=== PATIENT | female | born 1995 | race Caucasian/White ===

== ENCOUNTER 2020-01-08 14:09 | Emergency (ER) | payer MEDICAID, OTHER ==
[2020-01-08 14:24] VITALS: BP 124/81
--- NOTE | 2020-01-08 15:00 | XRAY Report ---
PROCEDURE: Forearm RT INDICATIONS: injury TECHNIQUE: 2 views of the forearm were acquired. COMPARISON: None. FINDINGS: Bones: No fractures or dislocations. No periosteal reaction. No suspicious bony lesions. Soft tissues: No suspicious soft tissue calcifications or masses. No radiopaque foreign body. IMPRESSION: No fracture or dislocation demonstrated. If symptoms persist consider follow-up radiographs in 10-14 days. No radiopaque foreign body. Reviewed by: Geo Galarza MD on 01/08/2020 2:59 PM PDT Approved by: Geo Galarza MD on 01/08/2020 2:59 PM PDT Station ID: [id number]
--- NOTE | 2020-01-08 16:05 | ED Physician Documentation ---
History of Present Illness - Stated complaint Stated Complaint: RT ARM INJURY - Chief complaint Chief Complaint: Trauma Ext - History obtained from History obtained from: Patient - Additonal information Additional information: Patient comes emergency department complaining of pain in her right forearm after her dog jerked her arm and caused her to hit her mid right forearm on the wooden back of the couch. Patient states that has been sore with movement since and that ibuprofen and Tylenol do not seem to be helping. 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 Patient denies any other complaints at this time. She was not hurt in any other way. Review of Systems Ten Systems: 10 systems reviewed and negative Constitutional: reports: Reviewed and negative Eyes: reports: Reviewed and negative Ears: reports: Reviewed and negative Nose: reports: Reviewed and negative Throat: reports: Reviewed and negative Cardiac: reports: Reviewed and negative Respiratory: reports: Reviewed and negative GI: reports: Reviewed and negative : reports: Reviewed and negative Skin: reports: Reviewed and negative Musculoskeletal: reports: Extremity pain. 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 : None HEENT: None Psych: Anxiety Musculoskeletal: None Derm: None - Past Surgical History Past Surgical History: Yes HEENT: Tonsil/Adenoidectomy - Present Medications Home Medications: Ambulatory Orders Medication Instructions Recorded Confirmed Anxiety Med 05/09/14 05/09/14 Ibuprofen [Advil] 05/09/14 05/09/14 Levonorgestrel [Mirena] 05/09/14 05/09/14 HYDROcod/ACETAM 5/325 [Vicodin 1 - 2 ea PO Q6H PRN #10 tablet 05/10/14 5/325] - Allergies Allergies/Adverse Reactions: Allergies Allergy/AdvReac Type Severity Reaction Status Date / Time No Known Drug Allergies Allergy Verified 01/08/20 14:19 - Social History Does the pt smoke?: Yes Smoking Status: Former smoker Does the pt drink ETOH?: No Does the pt have substance abuse?: No - Immunizations Immunizations are current?: Yes PD ED PE NORMAL - Vitals Vital signs reviewed: Yes - General General: Alert and oriented X 3, No acute distress - HEENT HEENT: Atraumatic, PERRL, EOMI, Moist mucous membranes - Neck Neck: Supple, no meningeal sign - Cardiac Cardiac: Strong equal pulses - Respiratory Respiratory: No respiratory distress - Derm Derm: Warm and dry, Other (Contusion over dorsal aspect of mid right forearm.) - Extremities Extremities: No deformity, No edema - Neuro Neuro: Alert and oriented X 3, No motor deficit, No sensory deficit - Psych Psych: Normal mood, Normal affect Results - Vitals Vitals: Vital Signs - 24 hr 01/08/20 14:19 Temperature 36.9 C Heart Rate 98 Respiratory 16 Rate Blood Pressure 124/81 H O2 Saturation 99 Oxygen O2 Source Room air - Rads (name of study) Forearm XR Radiology: Final report received, EMP read indepedently, See rad report (Negative) PD MEDICAL DECISION MAKING - ED course Complexity details: reviewed results, re-evaluated patient, considered differential, d/w patient ED course: I discussed with the patient that her x-ray series was negative, and that she is bruised her forearm. We have discussed home management of the symptoms. Patient may follow-up with her primary care physician for any further concerns. Departure - Departure Disposition: 01 Home, Self Care Clinical Impression: Forearm contusion Qualifiers: Encounter type: initial encounter Laterality: right Qualified Code(s): S50.11XA - Contusion of right forearm, initial encounter Condition: Stable Instructions: ED Contusion Upper Ext Comments: Your x-rays look great. You have certainly bruised the soft tissues of your forearm, my most likely including your muscle. You may also have bruised the bone underneath. This will be sore for a little while, but should be starting to feel better after the first roughly week since the injury. Please follow-up with your primary care physician for any further concerns.
== END 2020-01-08 16:14 | disposition home or self-care (01) ==
LOC: ED 14:09
DX: S50.11XA Contusion of right forearm, initial encounter (principal); W54.8XXA Other contact with dog, initial encounter; W22.8XXA Striking against or struck by other objects, initial encounter; Y93.89 Activity, other specified; Z87.891 Personal history of nicotine dependence
CPT/HCPCS: 99282; 99283

== ENCOUNTER 2021-03-13 13:53 | Outpatient (CLI) | payer MEDICAID ==
--- NOTE | 2021-03-13 16:09 | Ultrasound Report ---
PROCEDURE: Abdomen Complete INDICATIONS: EPIGASTRIC PAIN TECHNIQUE: Real-time scanning was performed of the abdominal and retroperitoneal organs, with image documentatio n. COMPARISON: 05/10/2014 CT abdomen and pelvis. FINDINGS: Liver: Liver is normal in size and homogeneous in echotexture. Gallbladder: Normally distended gallbladder. No wall thickening or pericholecystic fluid. No shadowin g gallstone or sludge. Biliary ducts: Intrahepatic bile ducts are non-dilated. Extrahepatic bile duct caliber measures 3-4 mm. Normal is 6-7 mm or less in diameter, or 10 mm or less post-cholecystectomy. Pancreas: Visualized portions of the pancreas are sonographically normal. Spleen: Spleen is normal in size and homogeneous in echotexture. Kidneys: Normal size and appearance of both kidneys Aorta: Visualized aorta is normal in caliber at less than 3 cm. Iliacs: Proximal common iliac arteries are normal in caliber at less than 2.5 cm. IVC: Intrahepatic inferior vena cava is patent. Miscellaneous: No free abdominal fluid. IMPRESSION: Normal abdominal ultrasound. Reviewed by: Terrell Hdz MD on 03/13/2021 4:08 PM PST Approved by: Terrell Hdz MD on 03/13/2021 4:08 PM PST Station ID: [id number]
== END 2021-03-13 13:54 | disposition home or self-care (01) ==
LOC: DI 13:53
PROVIDERS: ATTEND Family Medicine
DX: R10.13 Epigastric pain (principal)

== ENCOUNTER 2021-05-24 08:28 | Emergency (ER) | payer MEDICAID ==
[2021-05-24] MEDS ORDERED: CHERRY SYRUP 10 ML UDC PO ONE (08:59)
[2021-05-24] MEDS ORDERED: DEXAMETHASONE 10 MG/ML VIAL PO STA (08:59)
--- NOTE | 2021-05-24 09:02 | ED Physician Documentation ---
PD GIBSON HEENT - Stated complaint Stated Complaint: SWOLLEN THROAT - Chief complaint Chief Complaint: Heent - History obtained from History obtained from: Patient - History of Present Illness Timing - onset: Today Timing - duration: Hours Timing - details: Abrupt onset, Still present Location: Throat Improves: Nothing Worsens: Swalllowing Associated symptoms: Congestion, Cough. No: Fever Similar symptoms before: Has not had sx before Recently seen: Not recently seen - Additional information Additional information: 25-year-old female who is unvaccinated and has had a history of exposure is developed a sore throat with some swelling to her uvula this morning. She has been exposed over a week ago and she was not sick and tested negative last week. This morning she is awake and with a sensation of fullness in her throat like she was choking coughing and she tried to vomit trying to get something to come up nothing would come up when she looked in the mirror she could see that her uvula was swollen. She has not had fever with this. She has not otherwise been ill. Review of Systems Constitutional: reports: Myalgias, Fatigue. denies: Fever Eyes: denies: Photophobia Ears: denies: Ear pain Nose: reports: Rhinorrhea / runny nose, Congestion Throat: reports: Sore throat Cardiac: denies: Chest pain / pressure, Palpitations Respiratory: reports: Cough. 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 : None HEENT: None Psych: Depression, Anxiety Musculoskeletal: None Derm: None - Past Surgical History Past Surgical History: Yes HEENT: Tonsil/Adenoidectomy - Present Medications Home Medications: Ambulatory Orders Medication Instructions Recorded Confirmed Anxiety Med 05/09/14 05/09/14 Ibuprofen [Advil] 05/09/14 05/09/14 Levonorgestrel [Mirena] 05/09/14 05/09/14 HYDROcod/ACETAM 5/325 [Vicodin 1 - 2 ea PO Q6H PRN #10 tablet 05/10/14 5/325] Azithromycin [Zithromax] 250 mg PO DAILY #6 tablet 05/24/21 - Allergies Allergies/Adverse Reactions: Allergies Allergy/AdvReac Type Severity Reaction Status Date / Time No Known Drug Allergies Allergy Verified 05/24/21 08:39 - Social History Does the pt smoke?: Yes Smoking Status: Current every day smoker Does the pt drink ETOH?: No Does the pt have substance abuse?: No - Immunizations Immunizations are current?: Yes PD ED PE NORMAL - General General: Alert and oriented X 3, No acute distress, Well developed/nourished - HEENT HEENT: Atraumatic, PERRL, EOMI, Ears normal, Moist mucous membranes, Other (uvual is swollen red about 6mm diameter. No ulceration. No other swelling ) - Neck Neck: Supple, no meningeal sign, No bony TTP - Cardiac Cardiac: RRR, No murmur - Respiratory Respiratory: No respiratory distress, Clear bilaterally - Abdomen Abdomen: Normal bowel sounds, Soft - Back Back: No CVA TTP, No spinal TTP - Derm Derm: Normal color, Warm and dry, No rash - Extremities Extremities: No deformity, No edema - Neuro Neuro: Alert and oriented X 3, bobbin dumper 2-12 intact, No motor deficit, No sensory deficit, Normal speech Eye Opening: Spontaneous Motor: Obeys Commands Verbal: Oriented GCS Score: 15 - Psych Psych: Normal mood, Normal affect Results - Vitals Vitals: Vital Signs - 24 hr 05/24/21 08:34 Temperature 36.5 C Heart Rate 81 Respiratory 16 Rate Blood Pressure 112/74 O2 Saturation 100 Oxygen O2 Source Room air - Labs Labs: Laboratory Tests 05/24/21 09:10 Group A Strep Rapid Negative PD MEDICAL DECISION MAKING - ED course Complexity details: reviewed results, re-evaluated patient, considered differential, d/w patient ED course: 25-year-old female with a specifically swollen uvula with erythema I do not see an ulceration to suggest a burn and I directly asked the patient if she has burned the back of her throat she denies any use of an inhaled combustible's. She denies oral sex as a possible etiology. She has swabbed for Covid and strep and given a dose of dexamethasone. Departure - Departure Disposition: 01 Home, Self Care Clinical Impression: Uvulitis Condition: Stable Instructions: ED Uvulitis Follow-Up: Rickey Tamayo [Primary Care Provider] - Prescriptions: Azithromycin [Zithromax] 250 mg PO DAILY #6 tablet Comments: Soureya, Today it looks like there is inflammation to the uvula. We have given you a dose of decadron and this will help it shrink during the day today. I have prescribed antibiotic to [facility] in [place].
[2021-05-24 09:44] LABS: RAPID STREP SCREEN Negative (Negative)
[2021-05-24 10:31] VITALS: BP 108/75
== END 2021-05-24 10:31 | disposition home or self-care (01) ==
LOC: ED 08:28
DX: K12.2 Cellulitis and abscess of mouth (principal); Z20.822 Contact with and (suspected) exposure to COVID-19; F17.200 Nicotine dependence, unspecified, uncomplicated
CPT/HCPCS: 87070; 87430; 87635; 99282; 99283; A9270

== ENCOUNTER 2021-06-05 10:47 | Outpatient (CLI) | payer MEDICAID ==
[2021-06-05] MEDS ORDERED: IOVERSOL 320 100 ML VIAL IVP ONE ×2 (11:00→12:12)
[2021-06-05] MEDS ORDERED: IOPAMIDOL-300 50 ML VIAL ONE (11:01)
[2021-06-05] MEDS ORDERED: IOPAMIDOL-300 50 ML VIAL PO ONE (12:11)
--- NOTE | 2021-06-05 17:23 | CT Report ---
PROCEDURE: Abdomen/Pelvis W INDICATIONS: ABD PAIN CONTRAST: IV CONTRAST: Optiray 320 ml: 100 PO CONTRAST: Isovue 300 ml50 TECHNIQUE: After the administration of weight appropriate dose of intravenous contrast, 5 mm thick sections acqu ired from the diaphragms to the symphysis. 5 mm thick coronal and sagittal reformats were acquired. For radiation dose reduction, the following was used: automated exposure control, adjustment of mA and/or kV according to patient size. COMPARISON: 05/10/2014 FINDINGS: Image quality: Excellent. ABDOMEN: Lung bases: Lung bases are clear. Heart size is normal. Solid organs: Liver and spleen are normal in size and enhancement. Gallbladder is unremarkable. Bi liary system is non dilated. Pancreas enhances normally. No adrenal nodules. Kidneys demonstrate n ormal size and enhancement, without hydronephrosis. Peritoneum and bowel: Bowel loops demonstrate normal wall thickness and caliber. No free fluid or a ir. Moderate amount of fecal material seen throughout the colon. Nodes and vessels: No retroperitoneal or mesenteric adenopathy by size criteria. Aorta and inferior vena cava are normal in size. Miscellaneous: No ventral hernias. PELVIS: Genitourinary: Bladder wall thickness is normal. An IUD is noted within the uterus. Miscellaneous: No inguinal hernias or adenopathy. Bones: No suspicious bony lesions. No acute vertebral body compression fractures. IMPRESSION: CT abdomen and pelvis without acute abnormalities to explain patient's abdominal pain. I ncidentally noted, there is a moderate amount of fecal material seen throughout the colon. An IUD is visualized within the uterus. Reviewed by: Dayo Maravilla MD on 06/05/2021 4:22 PM [facility] Approved by: Dayo Maravilla MD on 06/05/2021 4:22 PM [facility] Station ID: [id number]
== END 2021-06-05 10:48 | disposition home or self-care (01) ==
LOC: DI 10:47
PROVIDERS: ATTEND Family Medicine
DX: R10.13 Epigastric pain (principal); R63.4 Abnormal weight loss; R10.31 Right lower quadrant pain; R10.32 Left lower quadrant pain; Z97.5 Presence of (intrauterine) contraceptive device
CPT/HCPCS: 74177; Q9967

== ENCOUNTER 2022-03-21 07:02 | Outpatient (CLI) | payer MEDICAID ==
[~2022-03-21 07:02] MED LIST: GADOBUTROL 7.5 MMOL/7.5 ML VIAL ONE
[2022-03-21] MEDS ORDERED: GADOBUTROL 7.5 MMOL/7.5 ML VIAL IVP ONE (07:47)
--- NOTE | 2022-03-24 13:40 | MRI Report ---
PROCEDURE: BRAIN W/WO INDICATIONS: MULTIPLE SCLEROSIS CONTRAST: 5.4 TECHNIQUE: Noncontrast axial T1 spin echo, axial T2 fast spin echo, sagittal and axial FLAIR, coronal T2 fast sp in echo, axial gradient echo, axial diffusion and ADC through the brain. After the administration of contrast, axial and coronal T1 spin echo with fat saturation through the brain. COMPARISON: None. FINDINGS: Multiple foci of increased T2/FLAIR signal intensity in the supratentorial white matter are not signi ficantly changed from the previous exam. There is no evidence of new lesion. Postcontrast images demo nstrate no abnormal enhancement. No restricted diffusion to indicate recent ischemia. No findings of mass effect, midline shift, or abnormal extra-axial fluid collection. Normal ventricular caliber and position. Patent basilar cisterns. No gross orbital abnormality. Small to moderate left mastoid air c ell effusion. Right mastoid air cells and paranasal sinuses are clear. IMPRESSION: Stable appearance of multiple foci of increased T2/FLAIR signal intensity within the sup ratentorial white matter, consistent with the provided history of multiple sclerosis. Reviewed by: Terrell Hdz MD on 03/24/2022 1:39 PM PST Approved by: Terrell Hdz MD on 03/24/2022 1:39 PM PST Station ID: [id number]
== END 2022-03-21 07:03 | disposition home or self-care (01) ==
LOC: DI 07:02
PROVIDERS: ATTEND Family Medicine
DX: G35 Multiple sclerosis (principal)
CPT/HCPCS: 70553; A9585

== ENCOUNTER 2023-01-16 07:56 | Outpatient (CLI) | payer MEDICAID ==
--- NOTE | 2023-01-16 11:37 | XRAY Report ---
PROCEDURE: Cervical Spine 2 View INDICATIONS: NECK/SHOULDER PAIN TECHNIQUE: 3 view(s) of the cervical spine were acquired. COMPARISON: C-spine radiograph dated June 24, 2008. FINDINGS: Bones: Lateral view extends from the skull base to T1. C-collar is in place with straightening of the cervical spine. Tiny widely displaced ossific density at the anteroinferior aspect of C6, new compar ed to C-spine dated June 24, 2008. No vertebral body compression fracture. Disc spaces are maintaine d. The lateral masses of C1 appear intact on the odontoid view. No suspicious bony lesions. Soft tissues: No prevertebral soft tissue swelling. The retrotracheal space measures 14 mm. Visuali zed lung apices are clear. IMPRESSION: 1. Tiny mildly displaced ossific density at the anteroinferior aspect of C6, new compared to June 22, may represent an extension teardrop fracture versus a tiny osteophyte. Correlate for point tender ness and consider an MRI, at clinical discretion. 2. No significant prevertebral soft tissue swelling. Retrotracheal space measures 14 mm. Reviewed by: Pepito Smith MD on 01/16/2023 11:36 AM PDT Approved by: Pepito Smith MD on 01/16/2023 11:36 AM PDT Station ID: [id number]
--- NOTE | 2023-01-16 11:37 | XRAY Report ---
PROCEDURE: Shoulder 3 View RT INDICATIONS: NECK/SHOULDER PAIN TECHNIQUE: 4 views of the shoulder were acquired. COMPARISON: None. FINDINGS: Bones: No fractures or dislocations. Normal glenohumeral alignment. Acromioclavicular and coracoclav icular intervals are congruent. No suspicious bony lesions. Visualized ribs appear intact. Soft tissues: No suspicious soft tissue calcifications. The visualized lungs are within normal limi ts. No soft tissue swelling or radiopaque foreign body. IMPRESSION: No acute bony abnormality. Reviewed by: Pepito Smith MD on 01/16/2023 11:36 AM PDT Approved by: Pepito Smith MD on 01/16/2023 11:36 AM PDT Station ID: [id number]
== END 2023-01-16 07:57 | disposition home or self-care (01) ==
LOC: DI 07:56
PROVIDERS: ATTEND Family Medicine
DX: M54.2 Cervicalgia (principal)

== ENCOUNTER 2023-12-26 11:47 | Emergency (ER) | payer MEDICAID ==
[2023-12-26 12:06] VITALS: BP 127/93; O2SAT 100
[2023-12-26] MEDS: HYDROcod/ACETAM 5/325 MG TABLET PO STA (12:42)
--- NOTE | 2023-12-26 12:43 | ED Physician Documentation ---
PD HPI LOWER EXT INJURY - Stated complaint Stated Complaint: GLF - Chief complaint Chief Complaint: Ext Problem - History obtained from History obtained from: Patient (She fell about a week ago with an inversion injury of the right foot and has persistent pain in the lateral right foot. 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 HEENT: None Psych: Depression, Anxiety Musculoskeletal: None Derm: None - Past Surgical History Past Surgical History: Yes HEENT: Tonsil/Adenoidectomy - Present Medications Home Medications: Ambulatory Orders Medication Instructions Recorded Confirmed Levonorgestrel [Mirena] 05/09/14 05/09/14 HYDROcod/ACETAM 5/325 [[place] 5/325] 1 - 2 tab PO Q6H PRN #15 tablet 12/26/23 Ondansetron [Ondansetron Odt] 8 mg PO DAILY PRN 12/26/23 12/26/23 Sumatriptan Succinate [Imitrex] 100 mg PO DAILY 12/26/23 12/26/23 - Allergies Allergies/Adverse Reactions: Allergies Allergy/AdvReac Type Severity Reaction Status Date / Time No Known Drug Allergies Allergy Verified 12/26/23 11:59 - Social History Does the pt smoke?: Yes Smoking Status: Current every day smoker Does the pt drink ETOH?: No Does the pt have substance abuse?: No - Immunizations Immunizations are current?: Yes PD ED PE NORMAL - Vitals Vital signs reviewed: Yes - General General: Alert and oriented X 3, No acute distress - Extremities Extremities: Other (Tender over the lateral midfoot. No deformities. Painful range of motion of the 3rd through 5th toes. No ankle or other leg tenderness.) - Neuro Neuro: Alert and oriented X 3 Results - Vitals Vitals: Vital Signs - 24 hr 12/26/23 11:55 Temperature 37.3 C Heart Rate 95 Respiratory 16 Rate Blood Pressure 127/93 H O2 Saturation 100 Oxygen O2 Source Room air - Rads (name of study) Three-view x-ray of the right foot was negative. Relevant Findings:: Final report received, EMP independent interpretation of test PD Medical Decision Making - ED course ED course: She presents with a foot sprain. Negative radiography. Placed in a walking boot needs some pain control as well. Departure - Departure Disposition: 01 Home, Self Care Clinical Impression: Foot sprain Qualifiers: Encounter type: initial encounter Laterality: right Qualified Code(s): S93.601A - Unspecified sprain of right foot, initial encounter Condition: Good Record reviewed to determine appropriate education?: Yes Instructions: ED Sprain Foot Prescriptions: HYDROcod/ACETAM 5/325 [[place] 5/325] 1 - 2 tab PO Q6H PRN #15 tablet PRN Reason: Pain Comments: You can continue the modalities you have been using for pain, such as ibuprofen, ice, elevation, and lidocaine. Follow-up with your doctor in a week if not b wyatt, return for new or worsening symptoms. I sent your prescriptions electronically to [facility] in [place]. I am prescribing a short course of narcotic pain medication for you. These are potentially dangerous and addictive medications that should be used carefully. These medications may constipate you. Take an ofdw-[id number] stool softener (docusate) twice daily with plenty of water while taking these medications. If you go 24 hours without a bowel movement, take [id number]-[id number] miralax, per package instructions. Do not drink or drive while taking these medications. If you received narcotic or sedating medications while in the emergency department, do not drive for 24 hours. Store this medication in a safe, secure place and out of reach of children. It is a violation of federal law to give or sell this medication to another person or to use in a manner other than prescribed. The ED will not refill narcotic prescriptions, including prescriptions lost or stolen. To dispose of unwanted medications: 1. [facility] provides a drop box for medication in pill form only (no liquids) 8:00 am to 4:30 p.m. Wednesday-Wednesday in the lobby of the [facility], [address] [place] [address]. Empty pills into ziplock bag before disposal. Call [phone] for information. 2.[facility] is a free service available to all [facility] residents. Go to [email or web address] Note that many narcotic pain relievers also contain Tylenol/acetaminophen. Please ensure that your total dose of acetaminophen from all sources does not exceed 3 g (3000 mg) per day. Forms: PCP List, Activity restrictions Discharge Date/Time: 12/26/23 12:56
--- NOTE | 2023-12-26 14:16 | XRAY Report ---
PROCEDURE: Foot 3+V RT INDICATIONS: Trauma TECHNIQUE: 3 views of the foot were acquired. COMPARISON: None. FINDINGS: Bones: No fractures or dislocations. No suspicious bony lesions. Soft tissues: No tibiotalar joint effusion. Achilles tendon appears normal. IMPRESSION: No acute bony abnormality. Reviewed by: Elmo Hdz MD on 12/26/2023 1:14 PM [facility] Approved by: Elmo Hdz MD on 12/26/2023 1:14 PM [facility] Station ID: [id number]
== END 2023-12-26 12:56 | disposition home or self-care (01) ==
LOC: ED 11:47
DX: S93.601A Unspecified sprain of right foot, initial encounter (principal); W19.XXXA Unspecified fall, initial encounter; Z79.899 Other long term (current) drug therapy
CPT/HCPCS: 73630; 99283; A9270